=== PATIENT | male | born 1960 | race African-American/Black ===

== ENCOUNTER 2017-04-20 19:37 | Emergency (ER) | payer SELFPAY ==
[~2017-04-20] VITALS: Ht 170.2 cm; Wt 86.2 kg
[2017-04-20 19:42] VITALS: BP 160/100
== END 2017-04-21 00:10 | disposition left against medical advice (07) ==
LOC: EDBD 19:37 → ER 19:40
DX: R07.9 Chest pain, unspecified (principal); Z53.21 Procedure and treatment not carried out due to patient leaving prior to being seen by health care provider

== ENCOUNTER 2019-05-15 22:39 | Emergency (ER) | payer MEDICAID ==
[~2019-05-15] VITALS: Ht 170.2 cm; Wt 81.6 kg
[2019-05-15] MEDS ORDERED: HALOPERIDOL LACTATE 5 MG/ML INJ VIAL IM ONE (23:15)
[2019-05-15] MEDS ORDERED: diphenhdrAMINE HCL 50 MG/1 ML VL IM ONE (23:15)
[2019-05-15] MEDS ORDERED: LORazepam 2MG/ML-1ML VIAL IM ONE (23:15)
[2019-05-15 23:24] LABS: Basophils # (auto) 0.1 uL; Basophils % (auto) 0.9 % (0.0-2.0); Eosinophils # (auto) 0 uL; Hematocrit 48.5 % (41.0-53.0); Hemoglobin 15.9 g/dL (13.5-17.5); Lymphocytes # (auto) 0.6 uL; Lymphocytes % (auto) 3.6 % (10.0-50.0); Mean Corpuscular Hemoglobin 30.2 pg (28.0-32.0); Mean Corpuscular Hgb Conc. 32.8 g/dL (32.0-36.0); Mean Corpuscular Volume 92.2 fL (80.0-100.0); Monocytes # (auto) 0.5 uL; Monocytes % (auto) 3.3 % (0.0-12.0); Neutrophils # (auto) 14.9 uL; Neutrophils % (auto) 92.2 % (37.0-80.0); Platelet Count (auto) 299 10^3/uL (140-450); Red Blood Cells 5.26 10^6/uL (4.5-5.90); White Blood Cell 16.2 10^3/uL (4.4-10.8)
[2019-05-15 23:36] LABS: Alanine Aminotransferase 28 U/L (16-61); Albumin 4.3 g/dL (3.4-5.0); Anion Gap 13 (5-15); Aspartate Aminotransferase 20 U/L (15-37); BUN/Creatinine Ratio 9.9; Blood Urea Nitrogen 16 mg/dL (7-18); Calcium 9.3 mg/dL (8.5-10.1); Carbon Dioxide 20 mmol/L (21-32); Chloride 109 mmol/L (98-107); GFR African American 57 mL/min; GFR Non-African American 47 mL/min; Glucose 143 mg/dL (74-106); Potassium 3.5 mmol/L (3.5-5.1); Salicylate 2.1 mg/dL (2.8-20.0); Sodium 142 mmol/L (136-145)
[2019-05-15] MEDS ORDERED: ADENOSINE 6 MG/2 ML INJ IV ONE (23:42)
[2019-05-15 23:45] LABS: Alkaline Phosphatase 80 U/L (45-117); Bilirubin, Total 0.2 mg/dL (0.2-1.0); Total Protein 8.9 g/dL (6.4-8.2)
[2019-05-15 23:48] LABS: Acetaminophen < 2.0 ug/mL (10-30)
[2019-05-16] MEDS ORDERED: ADENOSINE 6 MG/2 ML INJ IV ONE ×2
[2019-05-16] MEDS ORDERED: DILTIAZEM HCL 25 MG/5 ML VIAL IV ONE
[2019-05-16] MEDS ORDERED: IOHEXOL 350 MG/ML 100ML IJ ONE (00:07)
[2019-05-16 03:58] LABS: Amphetamine Screen, Urine POSITIVE (NEGATIVE); Barbiturate Scree,Urine NEGATIVE (NEGATIVE); Benzodiazephine Screen, Urine NEGATIVE (NEGATIVE); Cannabinoid Screen, Urine POSITIVE (NEGATIVE); Cocaine Screen, Urine NEGATIVE (NEGATIVE); Opiate Scree,Urine NEGATIVE (NEGATIVE); Phencyclidine Screen, Urine NEGATIVE (NEGATIVE)
[2019-05-16 04:00] VITALS: BP 142/74
[2019-05-16] MEDS ORDERED: LORazepam 2MG/ML-1ML VIAL IV ONE (04:15)
[2019-05-16 04:20] LABS: Urine Bacteria FEW /hpf (None Seen); Urine Blood Negative /uL (Negative); Urine Hyaline Cast MANY /lpf (0 - 2); Urine Mucus FEW (None Seen); Urine Specific Gravity 1.026 (1.001-1.035); Urine WBC 2 /hpf (0 - 3)
== END 2019-05-16 04:29 | disposition home or self-care (01) ==
LOC: ER 22:50
DX: F41.8 Other specified anxiety disorders (principal); I47.1 Supraventricular tachycardia; I10 Essential (primary) hypertension
CPT/HCPCS: 36415; 71045; 80053; 80307; 80329; 81001; 84484; 85025; 93005; 96372; 96374; 96375; 99284; J0153; J2060

== ENCOUNTER 2019-11-04 09:42 | Emergency (ER) | payer MEDICAID, OTHER ==
[~2019-11-04] VITALS: Ht 177.8 cm; Wt 131.5 kg
[2019-11-04 10:10] LABS: Basophils # (auto) 0.1 uL; Basophils % (auto) 0.8 % (0.0-2.0); Eosinophils # (auto) 0 uL; Eosinophils % (auto) 0.4 % (0.0-7.0); Hematocrit 50.5 % (41.0-53.0); Hemoglobin 17.1 g/dL (13.5-17.5); Lymphocytes # (auto) 0.9 uL; Lymphocytes % (auto) 8.7 % (10.0-50.0); Mean Corpuscular Hemoglobin 30.4 pg (28.0-32.0); Mean Corpuscular Hgb Conc. 33.8 g/dL (32.0-36.0); Mean Corpuscular Volume 89.9 fL (80.0-100.0); Monocytes # (auto) 0.9 uL; Neutrophils # (auto) 8.2 uL; Neutrophils % (auto) 81.1 % (37.0-80.0); Nucleated Red Blood Cells % 0.3 %; Platelet Count (auto) 280 10^3/uL (140-450); Red Blood Cells 5.62 10^6/uL (4.5-5.90); Red Cell Distribution Width 13.7 % (11.8-14.3); White Blood Cell 10.1 10^3/uL (4.4-10.8)
[2019-11-04 10:29] VITALS: BP 164/114
[2019-11-04] MEDS ORDERED: LORazepam 2MG/ML-1ML VIAL IV ONE (10:30)
[2019-11-04 10:32] LABS: Albumin 4.3 g/dL (3.4-5.0); Anion Gap 9 (5-15); Blood Alcohol < 3.0 mg/dL (0-5); Blood Urea Nitrogen 22 mg/dL (7-18); Calcium 9.3 mg/dL (8.5-10.1); Carbon Dioxide 22 mmol/L (21-32); Chloride 106 mmol/L (98-107); Glucose 104 mg/dL (74-106); Potassium 3.9 mmol/L (3.5-5.1); Sodium 137 mmol/L (136-145)
[2019-11-04 10:35] LABS: Alanine Aminotransferase 31 U/L (16-61); Alkaline Phosphatase 75 U/L (45-117); Aspartate Aminotransferase 49 U/L (15-37); BUN/Creatinine Ratio 15.9; Bilirubin, Total 1.1 mg/dL (0.2-1.0); GFR African American 68 mL/min; GFR Non-African American 56 mL/min; Total Protein 8.7 g/dL (6.4-8.2)
[2019-11-04 11:02] LABS: Salicylate < 1.7 mg/dL (2.8-20.0)
[2019-11-04 11:05] LABS: Acetaminophen < 2.0 ug/mL (10-30)
[2019-11-04] MEDS ORDERED: LORazepam 2MG/ML-1ML VIAL IM ONE (11:15)
[2019-11-04] MEDS ORDERED: HALOPERIDOL LACTATE 5 MG/ML INJ VIAL IM ONE (11:15)
[2019-11-04] MEDS ORDERED: diphenhdrAMINE HCL 50 MG/1 ML VL IM ONE (11:15)
== END 2019-11-04 12:19 | disposition left against medical advice (07) ==
LOC: ER 09:42 → EDBD 09:42 → ER 12:19
DX: F31.9 Bipolar disorder, unspecified (principal); F41.9 Anxiety disorder, unspecified; I10 Essential (primary) hypertension
CPT/HCPCS: 36415; 80053; 80320; 80329; 85025; 96374; 99284; J1200; J1630; J2060